=== PATIENT | female | born 1950 | race Caucasian/White ===

== ENCOUNTER → 2020-03-30 | Outpatient (CLI) | payer MEDICARE ==
[~2020-03-30] MED LIST: BYSTOLIC20 MG PO; DILT-XR180 MG PO; DITROPAN XL10 MG PO; ELIQUIS5 MG PO; FISH OIL 500 M1 EAC1 PO; IRBESARTAN-HCT1 EAC1 PO; LIPITOR20 MG PO; MELATONIN5 M2 PO; METFORMIN ER G500 MG PO; NITROSTAT0.4 MG SL; PROZAC10 MG PO; ST. JOSEPH ASPI81 M1 PO; SYNTHROID112 MCG PO; TRAZODONE HCL100 MG PO; VITAMIN D250 MCG PO
== END ==
LOC: EXRD 09:53
DX: R74.8 Abnormal levels of other serum enzymes (principal); R93.2 Abnormal findings on diagnostic imaging of liver and biliary tract
CPT/HCPCS: 76705

== ENCOUNTER → 2020-04-26 | Outpatient (CLI) | payer MEDICARE | LOC: EXRD 08:31 | DX: R17 Unspecified jaundice (principal) | CPT/HCPCS: 76705 ==

== ENCOUNTER → 2020-05-01 | Day surgery (SDC) | payer MEDICARE | END | disposition home or self-care (01) | LOC: OR 07:35 | PROVIDERS: Internal Medicine Gastroenterology | PROC: 0DJ08ZZ Inspection of Upper Intestinal Tract, Via Natural or Artificial Opening Endoscopic (ICD-10-PCS; principal; 2020-05-01 09:30) | DX: K75.81 Nonalcoholic steatohepatitis (NASH) (principal); K74.60 Unspecified cirrhosis of liver; K76.6 Portal hypertension; K31.89 Other diseases of stomach and duodenum; K29.71 Gastritis, unspecified, with bleeding; K22.8 Other specified diseases of esophagus; I44.7 Left bundle-branch block, unspecified; F41.9 Anxiety disorder, unspecified; I10 Essential (primary) hypertension; E11.9 Type 2 diabetes mellitus without complications; G47.00 Insomnia, unspecified; M19.90 Unspecified osteoarthritis, unspecified site; E78.00 Pure hypercholesterolemia, unspecified; E03.9 Hypothyroidism, unspecified; M10.9 Gout, unspecified; I48.19 Other persistent atrial fibrillation; E78.5 Hyperlipidemia, unspecified; E66.01 Morbid (severe) obesity due to excess calories; Z68.41 Body mass index [BMI] 40.0-44.9, adult; Z88.1 Allergy status to other antibiotic agents; Z88.5 Allergy status to narcotic agent; Z91.041 Radiographic dye allergy status; Z79.01 Long term (current) use of anticoagulants; Z79.84 Long term (current) use of oral hypoglycemic drugs; Z79.899 Other long term (current) drug therapy; Z20.822 Contact with and (suspected) exposure to COVID-19 | CPT/HCPCS: 82962; J2704; J7040 ==

== ENCOUNTER → 2020-07-05 | Outpatient (CLI) | payer MEDICARE ==
[2020-07-05 14:09] LABS: HEMOGLOBIN 12.6 gm/dl (12.3-15.3); RED BLOOD COUNT 4.29 M/UL (4.00-5.10); WHITE BLOOD COUNT 8.3 K/UL (4.5-11.0)
== END ==
LOC: LAB 13:52
PROVIDERS: Physician Assistant
DX: R06.02 Shortness of breath (principal); R91.8 Other nonspecific abnormal finding of lung field
CPT/HCPCS: 36415; 71046; 85025; 85379

== ENCOUNTER → 2020-07-19 | Outpatient (CLI) | payer MEDICARE | LOC: HEART 5 08:44 | DX: R06.02 Shortness of breath (principal) | CPT/HCPCS: 94010 ==

== ENCOUNTER → 2020-07-30 | Outpatient (CLI) | payer MEDICARE | LOC: ECHO 12:43 | DX: R06.02 Shortness of breath (principal); I10 Essential (primary) hypertension; I27.20 Pulmonary hypertension, unspecified; I08.8 Other rheumatic multiple valve diseases | CPT/HCPCS: ECHO; 93306 ==

== ENCOUNTER → 2020-09-27 | Outpatient (CLI) | payer MEDICARE | LOC: MAMO 12:51 | DX: Z12.31 Encounter for screening mammogram for malignant neoplasm of breast (principal); Z78.0 Asymptomatic menopausal state | CPT/HCPCS: 77063; 77067 ==

== ENCOUNTER → 2021-05-13 | Day surgery (SDC) | payer MEDICARE ==
[~2021-05-13] MED LIST changes: +ALLOPURINOL100 MG PO; +CLONIDINE HCL0.1 M1 PO; +CRESTOR10 MG PO; +LABETALOL HCL100 MG PO; +OXYBUTYNIN CHLO10 MG PO
== END | disposition home or self-care (01) ==
LOC: OR 05:19
PROVIDERS: Surgery
PROC: 0DJD8ZZ Inspection of Lower Intestinal Tract, Via Natural or Artificial Opening Endoscopic (ICD-10-PCS; principal; 2021-05-13 08:10)
DX: Z12.11 Encounter for screening for malignant neoplasm of colon (principal); Z20.822 Contact with and (suspected) exposure to COVID-19; I48.19 Other persistent atrial fibrillation; M10.9 Gout, unspecified; I10 Essential (primary) hypertension; E03.9 Hypothyroidism, unspecified; E78.00 Pure hypercholesterolemia, unspecified; I44.7 Left bundle-branch block, unspecified; E78.5 Hyperlipidemia, unspecified; G47.30 Sleep apnea, unspecified; E11.9 Type 2 diabetes mellitus without complications; E66.9 Obesity, unspecified; Z68.38 Body mass index [BMI] 38.0-38.9, adult; Z79.01 Long term (current) use of anticoagulants; Z79.82 Long term (current) use of aspirin; Z79.84 Long term (current) use of oral hypoglycemic drugs; Z79.899 Other long term (current) drug therapy; Z86.010 Personal history of colon polyps; Z88.1 Allergy status to other antibiotic agents; Z88.5 Allergy status to narcotic agent; Z88.6 Allergy status to analgesic agent; Z88.8 Allergy status to other drugs, medicaments and biological substances
CPT/HCPCS: 82962; J2704; J7030; U0002